=== PATIENT | male | born 1945 | race Caucasian/White ===

== ENCOUNTER 2018-05-24 18:10 | Emergency (ER) | payer MEDICARE, OTHER ==
--- NOTE | 2018-05-24 20:53 | CT ---
NONCONTRAST HEAD CT: HISTORY: Parkinson patient. Fell. Head injury. COMPARISON: None. TECHNIQUE: Noncontrast head CT is performed in the axial plane. Reformatted images are submitted for interpreta tion. FINDINGS: No parenchymal hemorrhage. No extraaxial hematoma. No mass effect or midline shift. Age appropriat e atrophy. Cortical diop white matter differentiation is preserved. The ventricles and sulci are patent and symmetric. Adequate aeration of the sinuses and mastoid air cells. There is a right temporal and right frontal scalp hematoma. The calvarium is intact. IMPERSSION: No intracranial post traumatic sequelae. POS: [facility]
== END 2018-05-24 20:09 | disposition home or self-care (01) ==
LOC: SCSER 18:10
DX: S09.90XA Unspecified injury of head, initial encounter (principal); S00.03XA Contusion of scalp, initial encounter; G20 Parkinson's disease; F41.9 Anxiety disorder, unspecified; F32.9 Major depressive disorder, single episode, unspecified; W18.30XA Fall on same level, unspecified, initial encounter
CPT/HCPCS: 70450